=== PATIENT | male | born 1970 | race American Indian/Alaskan Native ===

== ENCOUNTER 2018-09-16 21:20 | Emergency (ER) | payer OTHER ==
--- NOTE | 2018-09-16 21:29 | Emergency Department Report ---
Stated Complaint: Congestion Time Seen by Provider: 09/16/18 21:29 - HPI History of Present Illness: cp with cough went to urgent care they did ekg which was ok but they dont have xray so they sent him here on antivirals mse completed MSE screening note: Focused history and physical exam performed. Due to findings the following was ordered: ED Disposition for MSE Condition: Stable
[2018-09-16] MEDS ORDERED: CLARITIN PO ONE (21:30)
[2018-09-16] MEDS ORDERED: PROVENTIL IH ONE ×2 (21:30→21:41)
[2018-09-16] MEDS ORDERED: SOLU-Medrol IM ONE (21:30)
[2018-09-16 21:59] LABS: Hematocrit 42.1 % (35.5-45.6); Hemoglobin 14.1 gm/dl (11.8-15.2); Mean Corpuscular HGB Conc 33 % (32-34); Mean Corpuscular Volume 98 fl (84-94); Platelet Count 111 K/mm3 (140-440); Red Cell Distribution Width 12.9 % (13.2-15.2)
[2018-09-16 22:30] LABS: Alanine Aminotransferase 16 units/L (7-56); Albumin 3.8 g/dL (3.9-5); BUN/Creatinine Ratio 11; Blood Urea Nitrogen 14 mg/dL (9-20); Hemolysis Index 13
[2018-09-16 22:33] VITALS: BP 155/98
--- NOTE | 2018-09-16 22:34 | Emergency Department Report ---
ED General Adult HPI - General Chief complaint: Chest Pain Stated complaint: Congestion Time Seen by Provider: 09/16/18 21:29 Source: patient Mode of arrival: Ambulatory Limitations: No Limitations - History of Present Illness Initial comments: Patient is 47 years old male with history of HIV on antiviral medication. Patient stated that he is compliant with his medication. Patient presented to the ER with a one-week history of cough, productive with greenish sputum. Patient stated that his renal having some chills but no fever. Patient denied any nausea or vomiting. No recent travel. Severity scale (0 -10): 7 - Related Data Home Medications Medication Instructions Recorded Confirmed Last Taken Aspirin [Aspirin TAB] 325 mg PO QDAY 03/02/13 07/07/13 03/02/13 10:00 Clopidogrel [Plavix] 75 mg PO QDAY 03/02/13 07/07/13 03/02/13 10:00 Emtricitabin/Tenofovir [TRUVADA 1 tab PO QDAY 03/02/13 07/07/13 03/02/13 19:33 200-300 mg] Nebivolol HCl [Bystolic] mg PO QDAY 03/02/13 07/07/13 03/02/13 10:00 Raltegravir Potassium [Isentress] mg PO BID 03/02/13 07/07/13 03/02/13 11:00 Rosuvastatin (Nf) [Crestor] mg PO QHS 03/02/13 07/07/13 03/01/13 21:30 Previous Rx's Medication Instructions Recorded Last Taken Type Famotidine [Pepcid] 10 mg PO BID #30 tablet 03/03/13 Unknown Rx Allergies Allergy/AdvReac Type Severity Reaction Status Date / Time Penicillins Allergy Rash Verified 03/02/13 19:29 Sulfa (Sulfonamide Allergy Anaphylaxis Verified 03/02/13 19:29 Antibiotics) ED Review of Systems ROS: Stated complaint: Congestion Other details as noted in HPI Comment: All other systems reviewed and negative Eyes: denies: eye pain ENT: congestion. denies: throat pain Respiratory: cough. denies: orthopnea, shortness of breath, SOB with exertion Cardiovascular: denies: chest pain, palpitations Gastrointestinal: denies: abdominal pain, nausea, vomiting, diarrhea, constipation, hematemesis, melena, hematochezia Musculoskeletal: denies: back pain Neurological: denies: headache, weakness, numbness, paresthesias, confusion ED Past Medical Hx - Past Medical History Previous Medical History?: Yes Hx Hypertension: Yes Hx Heart Attack/AMI: Yes Hx HIV: Yes (immunocompetent since 1995, compliant with med regimen, no history of O.I.) Additional medical history: High cholesterol - Surgical History Past Surgical History?: Yes Hx Coronary Stent: Yes (x2) - Social History Smoking Status: Never Smoker Substance Use Type: Alcohol, Marijuana - Medications Home Medications: Home Medications Medication Instructions Recorded Confirmed Last Taken Type Aspirin [Aspirin TAB] 325 mg PO QDAY 03/02/13 07/07/13 03/02/13 10:00 History Clopidogrel [Plavix] 75 mg PO QDAY 03/02/13 07/07/13 03/02/13 10:00 History Emtricitabin/Tenofovir [TRUVADA 1 tab PO QDAY 03/02/13 07/07/13 03/02/13 19:33 History 200-300 mg] Nebivolol HCl [Bystolic] mg PO QDAY 03/02/13 07/07/13 03/02/13 10:00 History Raltegravir Potassium [Isentress] mg PO BID 03/02/13 07/07/13 03/02/13 11:00 History Rosuvastatin (Nf) [Crestor] mg PO QHS 03/02/13 07/07/13 03/01/13 21:30 History Famotidine [Pepcid] 10 mg PO BID #30 tablet 03/03/13 07/07/13 Unknown Rx ED Physical Exam - General Limitations: No Limitations General appearance: alert, in no apparent distress - Head Head exam: Present: atraumatic, normocephalic, normal inspection - Eye Eye exam: Present: normal appearance, PERRL - ENT ENT exam: Present: normal exam, normal orophraynx, mucous membranes moist - Neck Neck exam: Present: normal inspection, full ROM. Absent: tenderness, meningismus, lymphadenopathy, thyromegaly - Respiratory Respiratory exam: Present: normal lung sounds bilaterally - Cardiovascular Cardiovascular Exam: Present: regular rate, normal rhythm, normal heart sounds - GI/Abdominal GI/Abdominal exam: Present: soft, normal bowel sounds. Absent: distended, tenderness, guarding, rebound, rigid, organomegaly, mass, bruit, pulsatile mass - Extremities Exam Extremities exam: Present: normal inspection, full ROM, normal capillary refill. Absent: pedal edema, calf tenderness - Back Exam Back exam: Present: normal inspection, full ROM. Absent: tenderness, CVA tenderness (R), CVA tenderness (L), muscle spasm, paraspinal tenderness, vertebral tenderness - Neurological Exam Neurological exam: Present: alert, oriented X3, CN II-XII intact, normal gait, reflexes normal - Skin Skin exam: Present: warm, intact, normal color ED Course Vital Signs 09/16/18 09/16/18 21:32 22:31 Temperature 98.9 F 98.1 F Pulse Rate 104 H 90 Respiratory 18 15 Rate Blood Pressure 162/96 Blood Pressure 155/98 [Right] O2 Sat by Pulse 94 96 Oximetry ED Medical Decision Making - Lab Data Result diagrams: 09/16/18 21:46 09/16/18 21:46 - Radiology Data Radiology results: report reviewed Chest x-ray is unremarkable. - Medical Decision Making Patient is 47 years old male with history of HIV on antiviral medication. Patient stated that he is compliant with his medication. Patient presented to the ER with a one-week history of cough, productive with greenish sputum. Patient stated that his renal having some chills but no fever. Patient denied any nausea or vomiting. No recent travel. Chest x-ray is unremarkable. I will start patient on Zithromax for acute bronchitis and advised patient to follow up with his primary care physician in the next 2-3 days. Critical care attestation.: If time is entered above; I have spent that time in minutes in the direct care of this critically ill patient, excluding procedure time. ED Disposition Clinical Impression: Acute bronchitis Disposition: - TO HOME OR SELFCARE Is pt being admited?: No Condition: Stable Instructions: Acute Bronchitis (ED) Referrals: [facility] [Provider Group] - 3-5 Days
--- NOTE | 2018-09-16 22:58 | XRay Report ---
PROCEDURE: XR CHEST ROUTINE 2V TECHNIQUE: PA and lateral chest radiographs were obtained. HISTORY: chills cough COMPARISONS: None. FINDINGS: Heart: Normal. Mediastinum/Vessels: Normal. Lungs/Pleural space: Normal. Bony thorax: No acute osseous abnormality. IMPRESSION: Normal examination. This document is electronically signed by Morgan Quezada MD., September 16 2018 10:56:17 PM ET
== END 2018-09-16 23:47 | disposition home or self-care (01) ==
LOC: ED 21:20
DX: J20.9 Acute bronchitis, unspecified (principal); I10 Essential (primary) hypertension; I25.2 Old myocardial infarction; E78.00 Pure hypercholesterolemia, unspecified; F12.10 Cannabis abuse, uncomplicated
CPT/HCPCS: 36415; 71046; 80053; 85027; 94640